=== PATIENT | male | born 1950 | race Caucasian/White ===

== ENCOUNTER → 2017-02-10 | Outpatient (CLI) | payer MEDICARE, BC | END | disposition home or self-care (01) | LOC: MW.CHIM 11:08 | PROVIDERS: ATTEND Internal Medicine | DX: Z12.5 Encounter for screening for malignant neoplasm of prostate (principal); E11.9 Type 2 diabetes mellitus without complications; I10 Essential (primary) hypertension | CPT/HCPCS: 36415; 80053; 80061; 83036; 84439; 84443; 85025; G0103 ==

== ENCOUNTER → 2017-02-19 | Outpatient (CLI) | payer MEDICARE, BC | LOC: MW.CHIM 08:00 | PROVIDERS: ATTEND Internal Medicine | DX: I10 Essential (primary) hypertension (principal); J45.909 Unspecified asthma, uncomplicated; K21.9 Gastro-esophageal reflux disease without esophagitis; E11.9 Type 2 diabetes mellitus without complications | CPT/HCPCS: 99214 ==

== ENCOUNTER 2019-10-26 20:09 | Emergency (ER) | payer MEDICARE, BC ==
[2019-10-26] MEDS ORDERED: Sodium Chloride 0.9% 1,000 ML IV ONE (20:15)
--- NOTE | 2019-10-26 20:55 | CT ---
INDICATION: Seizure TECHNIQUE: CT head without contrast. COMPARISON: None available FINDINGS: There is mild age-related cortical volume loss. The ventricles are within normal limits for the patient`s age. There is no mass effect or midline shift. Small foci of decreased attenuation adjacent to the frontal horns are suggestive of minimal chronic small vessel ischemic changes. There is no loss of frias-white differentiation. There is no evidence of an acute intracranial hemorrhage. No acute calvarial fracture is seen. There is moderate left maxillary sinus mucosal thickening with mucosal retention cysts or polyps, and additional foci of mild to moderate paranasal sinus mucosal disease. The mastoid air cells are clear. Post cataracts surgery changes are seen. IMPRESSION: No evidence of an acute intracranial hemorrhage, mass effect or loss of frias-white differentiation. Please note that MRI is more sensitive for evaluation of seizures. Paranasal sinus disease. Dictated by Aries Ansari MD @ 10/26/2019 8:50:49 PM Please note that all CT scans at this facility use dose modulation, iterative reconstruction, and/or weight-based dosing when appropriate to reduce radiation dose to as low as reasonably achievable. Dictated by: Aries Ansari MD @ 10/26/2019 20:53:01 (Electronically Signed)
--- NOTE | 2019-10-26 20:57 | CR ---
Indication: Seizure. Technique: Single AP portable view of the chest. Comparison: September 14, 2018. Findings: Left basilar scar versus atelectasis is identified. The heart is normal in size. The lungs are clear. No infiltrate, pleural effusion, or pneumothorax is identified. Impression: No acute cardiopulmonary process. Dictated by Deb Banks MD @ Oct 26 2019 8:54PM Signed by Dr. Deb Banks @ Oct 26 2019 8:55PM
[2019-10-26 21:01] LABS: BLOOD UREA NITROGEN,BUN 20 mg/dL (7.0-18.0); CARBON DIOXIDE,CO2 23.2 mmol/L (21.0-32.0); CHLORIDE,CL 102 mmol/L (98-107); GLUCOSE RANDOM 169 mg/dL (74-106); POTASSIUM,K 3.6 mmol/L (3.5-5.1); SODIUM,NA 137 mmol/L (136-148)
--- NOTE | 2019-10-26 22:06 | EDM.PDOC ---
ED HPI GENERAL MEDICAL PROBLEM - General Chief Complaint: Neuro Symptoms/Deficits Stated Complaint: POSSIBLE SEIZURE/STROKE Time Seen by Provider: 10/26/19 20:14 Source of Information: Reports: Patient History Limitations: Reports: No Limitations - History of Present Illness INITIAL COMMENTS - FREE TEXT/NARRATIVE: 69 -year-old male presents the emergency room chief complaint of having a seizure while at a restaurant. Patient states that he knows he had a seizure and has a family history of seizures. Patient was drinking alcohol at the time. Patient's that the patient become unresponsive and started having tonic-clonic motion. Approximately 10 minutes .When patient arrived back to the ER he was oriented and awake without any complaints. Onset: Today Duration: Hour(s):, Improving Severity: Mild Improves with: Reports: None Worsens with: Reports: None Context: Reports: Activity Associated Symptoms: Reports: No Other Symptoms, Seizure head Pain Score (Numeric/FACES): 2 - Related Data Allergies Allergy/AdvReac Type Severity Reaction Status Date / Time amoxicillin trihydrate Allergy Vomiting Verified 10/26/19 20:16 [From Augmentin] Home Meds: Home Meds Albuterol [Ventolin HFA] 1 - 2 puff INH ASDIRECTED PRN 12/09/16 [History] Fluticasone/Salmeterol [Advair 250-50 Diskus] 1 inhalation INH BID PRN 12/09/16 [History] amLODIPine [Norvasc] 10 mg PO BEDTIME 12/09/16 [History] metFORMIN HCl [Metformin HCl] 500 tab PO BID 12/09/16 [History] cloNIDine [Catapres] 0.1 mg PO BEDTIME 07/27/18 [History] FLUoxetine HCl [Prozac] 40 mg PO DAILY 10/26/19 [History] Past Medical History HEENT History: Reports: Allergic Rhinitis, Cataract Other HEENT History: wears glasses Cardiovascular History: Reports: Hypertension Respiratory History: Reports: Asthma Other Respiratory History: uses advair discus "in bursts" when asthma flairs up - uses Ventolin occasionally Gastrointestinal History: Reports: GERD, Hiatal Hernia Other Gastrointestinal History: rare GERD currently Genitourinary History: Reports: None Musculoskeletal History: Reports: Fracture, Gout Other Musculoskeletal History: hx of fx ribs, left tibia, right ulna Neurological History: Reports: Concussion Psychiatric History: Reports: Anxiety Endocrine/Metabolic History: Reports: Diabetes, Type II Hematologic History: Reports: None Immunologic History: Reports: None Oncologic (Cancer) History: Reports: None Dermatologic History: Reports: Other (See Below) Other Dermatologic History: acne - Infectious Disease History Infectious Disease History: Reports: Chicken Pox, Measles, Mumps - Past Surgical History Head Surgeries/Procedures: Reports: None GI Surgical History: Reports: Hernia, Inguinal Musculoskeletal Surgical History: Reports: Shoulder Surgery Social & Family History - Family History Family Medical History: Noncontributory - Tobacco Use Smoking Status *Q: Never Smoker - Caffeine Use Caffeine Use: Reports: Coffee - Recreational Drug Use Recreational Drug Use: No ED ROS GENERAL - Review of Systems Review Of Systems: Comprehensive ROS is negative, except as noted in HPI. Constitutional: Reports: No Symptoms HEENT: Reports: No Symptoms Respiratory: Reports: No Symptoms Cardiovascular: Reports: No Symptoms Endocrine: Reports: No Symptoms GI/Abdominal: Reports: No Symptoms : Reports: No Symptoms Musculoskeletal: Reports: No Symptoms Skin: Reports: No Symptoms Neurological: Reports: Seizure Psychiatric: Reports: No Symptoms Hematologic/Lymphatic: Reports: No Symptoms Immunologic: Reports: No Symptoms - Physical Exam Exam: See Below Exam Limited By: No Limitations General Appearance: Alert, WD/WN, No Apparent Distress Eye Exam: Bilateral Eye: Normal Fundi, Normal Inspection Ears: Normal External Exam, Normal Canal, Hearing Grossly Normal, Normal TMs Nose: Normal Inspection, Normal Mucosa, No Blood Throat/Mouth: Normal Inspection, Normal Lips, Normal Teeth Head Exam: Atraumatic, Normocephalic Neck: Normal Inspection, Supple, Non-Tender, Full Range of Motion Respiratory/Chest: No Respiratory Distress, Lungs Clear, Normal Breath Sounds, No Accessory Muscle Use, Chest Non-Tender Cardiovascular: Normal Peripheral Pulses, Regular Rate, Rhythm, No JVD, No Murmur GI/Abdominal: Normal Bowel Sounds, Soft (Male) Exam: Deferred Neuro Exam (Abbreviated): Normal Reflexes, No Motor/Sensory Deficits Back Exam: Normal Inspection, Full Range of Motion Extremities: Normal Inspection, Normal Range of Motion, Non-Tender, No Pedal Edema, Normal Capillary Refill Psychiatric: Normal Affect, Normal Mood Skin Exam: Warm, Intact, Normal Color, No Rash Course - Vital Signs Last Recorded V/S: Last Vital Signs Temp 96.5 F 10/26/19 20:09 Pulse 73 10/26/19 21:14 Resp 16 10/26/19 21:14 BP 114/68 10/26/19 21:14 Pulse Ox 92 L 10/26/19 21:14 - Orders/Labs/Meds Orders: Active Orders 24 hr Category Date Time Status EKG Documentation Completion [RC] STAT Care 10/26/19 20:16 Active Labs: Laboratory Tests 10/26/19 10/26/19 Range/Units 20:18 20:18 WBC 5.95 (4.0-11.0) K/uL RBC 4.96 (4.50-5.90) M/uL Hgb 15.3 (13.0-17.0) g/dL Hct 43.9 (38.0-50.0) % MCV 88.5 (80.0-98.0) fL MCH 30.8 (27.0-32.0) pg MCHC 34.9 (31.0-37.0) g/dL RDW Std Deviation 39.8 (28.0-62.0) fl RDW Coeff of Duglas 13 (11.0-15.0) % Plt Count 171 (150-400) K/uL MPV 10.80 (7.40-12.00) fL Neut % (Auto) 51.9 (48.0-80.0) % Lymph % (Auto) 31.8 (16.0-40.0) % Dodge % (Auto) 11.6 (0.0-15.0) % Eos % (Auto) 3.4 (0.0-7.0) % Baso % (Auto) 1.3 (0.0-1.5) % Neut # (Auto) 3.1 (1.4-5.7) K/uL Lymph # (Auto) 1.9 (0.6-2.4) K/uL Dodge # (Auto) 0.7 (0.0-0.8) K/uL Eos # (Auto) 0.2 (0.0-0.7) K/uL Baso # (Auto) 0.1 (0.0-0.1) K/uL Nucleated RBC % 0.0 /100WBC Nucleated RBCs # 0 K/uL Sodium 137 (136-148) mmol/L Potassium 3.6 (3.5-5.1) mmol/L Chloride 102 (98-107) mmol/L Carbon Dioxide 23.2 (21.0-32.0) mmol/L BUN 20 H (7.0-18.0) mg/dL Creatinine 1.2 (0.8-1.3) mg/dL Est Cr Clr Drug Dosing 66.58 mL/min Estimated GFR (MDRD) > 60.0 ml/min Glucose 169 H (74-106) mg/dL Calcium 8.5 (8.5-10.1) mg/dL Total Bilirubin 0.3 (0.2-1.0) mg/dL AST 15 (15-37) IU/L ALT 28 (14-63) IU/L Alkaline Phosphatase 93 (46-116) U/L Total Protein 7.4 (6.4-8.2) g/dL Albumin 4.0 (3.4-5.0) g/dL Globulin 3.4 (2.6-4.0) g/dL Albumin/Globulin Ratio 1.2 (0.9-1.6) Ethyl Alcohol 103 mg/dL Meds: Medications Discontinued Medications Generic Name Dose Route Start Last Admin Trade Name Freq PRN Reason Stop Dose Admin Sodium Chloride 1,000 mls @ 1,000 mls/hr 10/26/19 20:15 10/26/19 21:11 Normal Saline IV 10/26/19 21:14 1,000 mls/hr .Bolus ONE Administration Departure - Departure Time of Disposition: 22:08 Disposition: Home, Self-Care 01 Clinical Impression: Seizure disorder - Discharge Information Instructions: Epilepsy, [id number] Referrals: Sherif Menard MD [Primary Care Provider] - Additional Instructions: Patient is to follow-up with neurology as soon as possible Sepsis Event Note - Evaluation Sepsis Screening Result: No Definite Risk - Focused Exam Vital Signs: Vital Signs Temp Pulse Resp BP Pulse Ox 10/26/19 21:14 73 16 114/68 92 L 10/26/19 20:09 96.5 F 73 18 145/74 H 94 L Date Exam was Performed: 10/26/19 Time Exam was Performed: 22:01 - My Orders Last 24 Hours: My Active Orders 10/26/19 20:16 EKG Documentation Completion [RC] STAT - Assessment/Plan Last 24 Hours: My Active Orders 10/26/19 20:16 EKG Documentation Completion [RC] STAT
[2019-10-26 22:48] VITALS: BP 124/74; PULSE 72
== END 2019-10-26 22:15 | disposition home or self-care (01) ==
LOC: MW.ED 20:09
DX: G40.909 Epilepsy, unspecified, not intractable, without status epilepticus (principal); I10 Essential (primary) hypertension; F41.9 Anxiety disorder, unspecified; E11.9 Type 2 diabetes mellitus without complications; Z79.84 Long term (current) use of oral hypoglycemic drugs; Z79.899 Other long term (current) drug therapy; Z88.1 Allergy status to other antibiotic agents
CPT/HCPCS: 70450; 71045; 80053; 85025; 93005; 99285; G0480; J7030; 99284

== ENCOUNTER 2021-03-09 06:35 | Day surgery (SDC) | payer MEDICARE, BC ==
[~2021-03-09 06:35] MED LIST: Lactated Ringers 1,000 ML IV SCH
[2021-03-09] MEDS ORDERED: Propofol 200 MG/20 ML SDV ONE (07:17)
[2021-03-09] MEDS ORDERED: Lidocaine 2% 5 ML SDV ONE (07:17)
--- NOTE | 2021-03-09 07:31 | PCM.PREANE ---
Preanesthetic Assessment - Anesthesia/Transfusion/Family Hx Anesthesia History: Prior Anesthesia Without Reaction Family History of Anesthesia Reaction: No Transfusion History: No Prior Transfusion(s) - Review of Systems General: No Symptoms Pulmonary: No Symptoms Cardiovascular: No Symptoms Gastrointestinal: No Symptoms Neurological: No Symptoms Other: Reports: None - Physical Assessment NPO Status Date: 03/09/21 NPO Status Time: 00:01 Vital Signs: Last Vital Signs Temp 97.5 F 03/09/21 07:11 Pulse 68 03/09/21 07:11 Resp 16 03/09/21 07:11 BP 144/73 H 03/09/21 07:11 Pulse Ox 96 03/09/21 07:11 Height: 6 ft Weight: 226 lb ASA Class: 2 Mental Status: Alert & Oriented x3 Airway Class: Mallampati = 2 Dentition: Reports: Normal Dentition ROM/Head Extension: Full Lungs: Clear to Auscultation, Normal Respiratory Effort Cardiovascular: Regular Rate, Regular Rhythm - Lab Values: Laboratory Last Values POC Glucose 150 mg/dL (70-99) H 03/09/21 06:57 - Allergies Allergies/Adverse Reactions: Allergies Allergy/AdvReac Type Severity Reaction Status Date / Time amoxicillin trihydrate Allergy Vomiting Verified 03/09/21 07:22 [From Augmentin] - Anesthesia Plan Pre-Op Medication Ordered: None - Acknowledgements Anesthesia Type Planned: General Anesthesia Pt an Appropriate Candidate for the Planned Anesthesia: Yes Alternatives and Risks of Anesthesia Discussed w Pt/Guardian: Yes Pt/Guardian Understands and Agrees with Anesthesia Plan: Yes Additional Comments: npo htn no cv problems anxiety depresion asthma daily inhalers hayfever tobias no cpap 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 workup neg no rx etoh occ now tob quit 2014 bmi 30 par no questions PreAnesthesia Questionnaire HEENT History: Reports: Cataract, Hard of Hearing Other HEENT History: wears glasses, has bilateral hearing aides Cardiovascular History: Reports: Hypertension Respiratory History: Reports: Asthma, Sleep Apnea Other Respiratory History: does not have a CPAP Gastrointestinal History: Reports: Hiatal Hernia Other Gastrointestinal History: rare GERD currently Genitourinary History: Reports: None Musculoskeletal History: Reports: Back Pain, Chronic, Fracture Other Musculoskeletal History: hx of fx ribs, arm, leg and fingers Neurological History: Reports: Concussion, Seizure, Other (See Below) Other Neuro History: had an alcohol related seizure 18 months ago Psychiatric History: Reports: Anxiety, Depression Endocrine/Metabolic History: Reports: Diabetes, Type II Other Endocrine/Metabolic History: diabetes is "in remission" because of weight loss in the last year Hematologic History: Reports: None Immunologic History: Reports: None Oncologic (Cancer) History: Reports: None Dermatologic History: Reports: Other (See Below) Other Dermatologic History: acne - Infectious Disease History Infectious Disease History: Reports: Chicken Pox, Measles, Mumps - Past Surgical History Head Surgeries/Procedures: Reports: None HEENT Surgical History: Reports: Cataract Surgery Other HEENT Surgeries/Procedures: wisdom teeth Cardiovascular Surgical History: Reports: None Respiratory Surgical History: Reports: None GI Surgical History: Reports: Colonoscopy, Hernia, Inguinal Male Surgical History: Reports: None Endocrine Surgical History: Reports: None Neurological Surgical History: Reports: None Musculoskeletal Surgical History: Reports: Shoulder Surgery Other Musculoskeletal Surgeries/Procedures:: hx of Right RTCR Oncologic Surgical History: Reports: None Dermatological Surgical History: Reports: None - SUBSTANCE USE Tobacco Use Status *Q: Former Tobacco User Tobacco Use Within Last Twelve Months: No Recreational Drug Use History: No - HOME MEDS Home Medications: Home Meds Albuterol [Ventolin HFA] 1 - 2 puff INH ASDIRECTED PRN 12/09/16 [History] Fluticasone Propion/Salmeterol [Advair 250-50 Diskus] 1 inhalation INH BID PRN 12/09/16 [History] amLODIPine [Norvasc] 10 mg PO QAM 12/09/16 [History] cloNIDine [Catapres] 0.1 mg PO BEDTIME 07/27/18 [History] FLUoxetine HCl [Prozac] 40 mg PO QAM 10/26/19 [History] Tadalafil [Cialis] 20 mg PO ASDIRECTED PRN 03/06/21 [History] - CURRENT (IN HOUSE) MEDS Current Meds: Current Medications Lactated Ringer's (Ringers, Lactated) 1,000 mls @ 125 mls/hr IV ASDIRECTED LENORE Last Admin: 03/09/21 07:17 Dose: 125 mls/hr Documented by: Discontinued Medications Lidocaine (Lidocaine 2% 5 Ml Sdv) Confirm Administered Dose 5 ml .ROUTE .STK-MED ONE Stop: 03/09/21 07:18 Propofol (Propofol 200 Mg/20 Ml Sdv) Confirm Administered Dose 400 mg .ROUTE .[facility]-MED ONE Stop: 03/09/21 07:18
[2021-03-09] MEDS ORDERED: fentaNYL 100 MCG/2 ML SDV ONE (07:52)
--- NOTE | 2021-03-09 08:23 | PCM.OPNOTE ---
- General Post-Op/Procedure Note Date of Surgery/Procedure: 03/09/21 Operative Procedure(s): Colonoscopy Pre Op Diagnosis: Desire for colorectal cancer screening. Family history of colon polyps. Post-Op Diagnosis: Sigmoid diverticulosis Anesthesia Technique: MAC (ASA II) Primary Surgeon: Jim Kwon Condition: Good Free Text/Narrative:: DICTATION [id number] CPT CODE 43553
[2021-03-09] MEDS ORDERED: Lactated Ringers 1,000 ML IV SCH (08:30)
[2021-03-09 08:37] VITALS: BP 126/72; PULSE 82
--- NOTE | 2021-03-09 09:00 | PCM48HPAN ---
Post Anesthesia Note - EVALUATION WITHIN 48HRS OF ANESTHETIC Vital Signs in Normal Range: Yes Patient Participated in Evaluation: Yes Respiratory Function Stable: Yes Airway Patent: Yes Cardiovascular Function Stable: Yes Hydration Status Stable: Yes Pain Control Satisfactory: Yes Nausea and Vomiting Control Satisfactory: Yes Mental Status Recovered: Yes Vital Signs: Last Vital Signs Temp 97.2 F 03/09/21 08:30 Pulse 82 03/09/21 08:30 Resp 16 03/09/21 08:30 BP 126/72 03/09/21 08:30 Pulse Ox 96 03/09/21 08:30
--- NOTE | 2021-03-09 09:00 | PCM.POSTAN ---
POST ANESTHESIA ASSESSMENT - MENTAL STATUS Mental Status: Alert (no anesthetic problems), Oriented - VITAL SIGNS Vital Signs: Last Vital Signs Temp 97.2 F 03/09/21 08:30 Pulse 82 03/09/21 08:30 Resp 16 03/09/21 08:30 BP 126/72 03/09/21 08:30 Pulse Ox 96 03/09/21 08:30 - RESPIRATORY Respiratory Status: Respiratory Rate WNL, Airway Patent, O2 Saturation Stable - CARDIOVASCULAR CV Status: Pulse Rate WNL, Blood Pressure Stable - GASTROINTESTINAL GI Status: No Symptoms - POST OP HYDRATION Hydration Status: Adequate & Stable
--- NOTE | 2021-03-09 14:45 | OR ---
SURGEON: Jim Kwon M.D. DATE OF PROCEDURE: 03/09/2021 OPERATION PERFORMED: Colonoscopy. PRIMARY SURGEON: Jim Kwon MD. ANESTHESIA: MAC. ASA CLASSIFICATION: II. PREOPERATIVE DIAGNOSIS: Desire for colorectal cancer screening. POSTOPERATIVE DIAGNOSIS: Sigmoid diverticulosis. DESCRIPTION OF PROCEDURE: The patient was taken to the endoscopy room and positioned on the endoscopy table in the left lateral decubitus position. Time-out was called for appropriate identification of the patient and procedure. Monitored anesthesia care was provided. The colonoscope was inserted into the rectum and advanced with minimal difficulty to the cecum. The cecum was identified by internal landmarks and external pressure. The colonoscope was retroflexed to visualize the ascending colon from below, then straightened and slowly withdrawn. The cecum, ascending colon, hepatic flexure, transverse colon, splenic flexure, and descending colon were very well visualized. No tumors, polyps, diverticula, or angiodysplastic changes were noted anywhere in the lower gastrointestinal tract. Once the colonoscope was withdrawn to the sigmoid, moderate diverticular changes noted. No stricture, spasm, or bleeding was noted. No polyps were encountered. The colonoscope was then withdrawn to the rectum and retroflexed to visualize the anal orifice from above. No tumors, polyps, or acute hemorrhoidal changes were noted. The colonoscope was then straightened, the rectum aspirated, and the colonoscope removed. The patient tolerated the procedure well and was taken to recovery room in stable condition. MARKY / YULIYA /[id number]
== END 2021-03-09 09:03 | disposition home or self-care (01) ==
LOC: MW.SDS 06:35
PROVIDERS: ATTEND Surgery
DX: Z12.11 Encounter for screening for malignant neoplasm of colon (principal); K57.30 Diverticulosis of large intestine without perforation or abscess without bleeding; I10 Essential (primary) hypertension; J45.909 Unspecified asthma, uncomplicated; G47.30 Sleep apnea, unspecified; E11.9 Type 2 diabetes mellitus without complications; F41.9 Anxiety disorder, unspecified; F32.9 Major depressive disorder, single episode, unspecified; G47.33 Obstructive sleep apnea (adult) (pediatric); Z88.8 Allergy status to other drugs, medicaments and biological substances; Z87.891 Personal history of nicotine dependence; Z83.71 Family history of colonic polyps; Z98.890 Other specified postprocedural states
CPT/HCPCS: 82947; G0121; J2704; J3010; J7120; 00812